=== PATIENT | female | born 1940 | race Hispanic/Latino ===

== ENCOUNTER 2024-09-17 07:23 | Day surgery (SDC) | payer OTHER, MEDICARE ==
[~2024-09-17] VITALS: Ht 144.8 cm; Wt 85.7 kg
[2024-09-17] VITALS (13 sets, daily range): BP systolic 102–147; BP diastolic 42–65; PULSE 65–76; RESP 14–21; TEMP 97.1–97.5
[~2024-09-17 07:23] MED LIST: INSU100I24 SQ; LISI2.5T13 PO; METF-446 PO; PRAV10TA39 PO
[2024-09-17] MEDS: 0.9%NACL 1000ML 1,000 ML IV ONE (07:50)
[2024-09-17] MEDS ORDERED: INDOMETHACIN 100 MG SUPP.RECT RC ONE (09:30)
[2024-09-17] MEDS ORDERED: IOHEXOL-350 50ML VIAL IV ONE (09:40)
[2024-09-17] MEDS ORDERED: SUCCINYLCHOLINE CHLORIDE 20 MG/ML 10 ML VIAL ONE (10:17)
[2024-09-17] MEDS ORDERED: LIDOCAINE PF 100MG/5ML (2%) SYRINGE 5ML ONE (10:18)
[2024-09-17] MEDS ORDERED: proPOFol 10 MG/ML 20ML VIAL IV ONE (10:18)
--- NOTE | 2024-09-17 12:26 | HMCIMG ---
ERCP BILI/PANC DUCT REASON: CALCULUS OF BILE DUCT WITH CHOLANGITIS,UNSPECIFIED,WITHOUT OBSTRUCTION. COMPARISON: None TECHNIQUE: ERCP was performed by referring physician. FINDINGS: Please see procedure report by referring physician. IMPRESSION: ERCP.
== END 2024-09-17 12:00 | disposition home or self-care (01) ==
LOC: DAH 07:23 → ENDO 07:23
PROVIDERS: ATTEND Internal Medicine Gastroenterology
DX: K80.30 Calculus of bile duct with cholangitis, unspecified, without obstruction (principal); I10 Essential (primary) hypertension; E66.9 Obesity, unspecified; E11.40 Type 2 diabetes mellitus with diabetic neuropathy, unspecified; E11.319 Type 2 diabetes mellitus with unspecified diabetic retinopathy without macular edema; Z68.37 Body mass index [BMI] 37.0-37.9, adult; G62.9 Polyneuropathy, unspecified; Z79.899 Other long term (current) drug therapy; Z87.898 Personal history of other specified conditions; Z79.84 Long term (current) use of oral hypoglycemic drugs
CPT/HCPCS: 74328; 43264; 43273; J0330; J7030; J2003; J2704; Q9967; A4215 ×2; A4223; A4657; A7002; A4222; A4221; A4663; A4606; C1769; C1773; 74330; J3490